=== PATIENT | male | born 1995 | race Caucasian/White ===

== ENCOUNTER 2020-09-05 09:15 | Outpatient (REF) | payer OTHER, SELFPAY | END 2020-09-05 09:16 | disposition home or self-care (01) | LOC: HO.LAB 09:15 | PROVIDERS: Visit Provider Internal Medicine | DX: Z20.828 Contact with and (suspected) exposure to other viral communicable diseases (principal) | CPT/HCPCS: C9803; U0003 ==

== ENCOUNTER 2020-11-18 09:27 | Outpatient (REF) | payer OTHER, SELFPAY | END 2020-11-18 09:28 | disposition home or self-care (01) | LOC: HO.LAB 09:27 | PROVIDERS: Visit Provider Internal Medicine | DX: Z20.822 Contact with and (suspected) exposure to COVID-19 (principal) | CPT/HCPCS: 36415; C9803; U0003; U0005 ==

== ENCOUNTER 2021-04-04 12:04 | Outpatient (REF) | payer OTHER, SELFPAY | END 2021-04-04 12:05 | disposition home or self-care (01) | LOC: HO.LAB 12:04 | PROVIDERS: Visit Provider Internal Medicine | DX: Z20.822 Contact with and (suspected) exposure to COVID-19 (principal) | CPT/HCPCS: C9803; U0003; U0005 ==

== ENCOUNTER 2021-06-13 08:47 | Outpatient (REF) | payer OTHER, SELFPAY ==
[2021-06-13 09:46] LABS: COVID-19 Test Negative (Negative)
== END 2021-06-13 08:48 | disposition home or self-care (01) ==
LOC: HO.LAB 08:47
PROVIDERS: Visit Provider Internal Medicine
DX: Z20.822 Contact with and (suspected) exposure to COVID-19 (principal)
CPT/HCPCS: 36415; 87635; C9803

== ENCOUNTER 2023-08-09 10:19 | Emergency (ER) | payer OTHER, SELFPAY ==
[2023-08-09 10:21] VITALS: BP 110/64; PULSE 100; RESP 18; TEMP 36.2; O2SAT 99; BMI 29.2
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
[2023-08-09] MEDS: Ketorolac Tromethamine 15 MG/ML VIAL IM (10:59)
[2023-08-09] MEDS: Cyclobenzaprine HCl 5 MG TABLET PO (11:00)
== END 2023-08-09 11:10 | disposition home or self-care (01) ==
PROVIDERS: Emergency Provider Emergency Medicine
DX: M54.50 Low back pain, unspecified (principal)
CPT/HCPCS: 96372; 99283; 99284; J1885

== ENCOUNTER 2023-08-15 07:57 | Outpatient (AMB) | payer OTHER, SELFPAY ==
--- NOTE | 2023-08-15 08:06 | A.OFFPC_ITS ---
<Statement entered by RONALD Montalvo - 08/16/23 11:24> This appointment is for a new patient physical exam with abnormal findings. Vital Signs 08/15/23 08:09 Height 6 ft Weight 220 lb BMI 29.8 BP 104/74 Blood Pressure Location Rt brachial Position Sitting Pulse 60 Pulse Source Pulse Oximeter Pulse Oximetry (%) 99 Oxygen Delivery Method Room Air Intake Visit Reasons: New Patient requesting Annual PE Intake Note: Pt is here today as a New Patient requesting a PE Allergies No Known Allergies [No Known Allergies*] Allergy (Verified 09/12/23 10:56) Tobacco use date assessed: 08/15/23 Dental Screening Dental Screen Date: 08/15/23 Did you have a dental visit in the last 12 months?: No Was dental information given to patient?: No HPI HPI Comments History of Present Illness Details The patient is a 28-year-old male here to establish care and have a physical exam. At the appointment today the patient has a chief complaint of lower back pain. He has a history of lower back pain. He states that the pain has improved over the past week but that he is still having discomfort at work, still having some discomfort trying to sleep. He has been using the Flexeril 5mg with some relief. He denies any cracking or crepitus. Denies tingling or numbness. No N/V/D. [facility] Medical History Lower back pain Physical exam Social History (Updated 08/15/23 @ 08:53 by RONALD Montalvo) Housing: Apartment Patient Tobacco Use Status: Current someday Tobacco user e-Cigarette/Vaping Use: Never Used Substance Use Type: Marijuana service: No Current occupational status: employed Cognitive needs: No Hearing needs: No Vision needs: No Questionnaire PHQ-9 Over the last 2 weeks, how often have you been bothered by any of the following problems? 1. Little interest or pleasure in doing things: several days 2. Feeling down, depressed, or hopeless: several days 3. Trouble falling or staying asleep, or sleeping too much: several days 4. Feeling tired or having little energy: more than half the days 5. Poor appetite or overeating: several days 6. Feeling bad about yourself - or that you are a failure or have let yourself or your family down: not at all 7. Trouble concentrating on things, such as reading the newspaper or watching television: several days 8. Moving or speaking so slowly that other people could have noticed. Or the opposite - being so fidgety or restless that you have been moving around a lot more than usual: not at all 9. Thoughts that you would be better off or of hurting yourself in some way: not at all Total score: 7 Depression Screening Interpretation: Negative (watchful waiting/ ) Depression Screening Done: Yes 59415 - PHQ-9 Billing: Yes Source: Developed by Drs. Hugo Allen, Nia Can, Bony Ely and colleagues, with an educational fransisca from [employer]. Thrive Questionnaire Date Thrive assessed: 08/15/23 I am a: Patient What is your living situation today?: I have a steady place to live Within the past 12 months, did the food you bought not last and you didn't have the money to get more?: Never true Within the past 12 months, did you worry whether your food would run out before you got money to buy more?: Never true Do you have trouble paying for medicines?: No Do you have trouble getting transportation to medical appointments?: No Do you have trouble paying your heating and electricity bill?: No Do you have trouble taking care of your child, family member or friend?: No Do you have trouble with day-to-day activities such as bathing, preparing meals, shopping, managing finances, etc.?: No Are you currently unemployed and looking for a job?: No Are you interested in more education?: No AUDIT C Alcohol Use Questionnaire (AUDIT-C) 1. How often do you have a drink containing alcohol?: Monthly or less 2. How many drinks containing alcohol do you have on a typical day when you are drinking?: 1 or 2 3. How often do you have six or more drinks on one occasion?: Never Total Score: 1 Score Reviewed/Action Taken: Yes BRETT-7 AMB Questionnaire BRETT-7 Date BRETT - 7 assessed: 08/15/23 Feeling nervous, anxious, or on edge: 1 = Several days Not being able to stop or control worryin = Several days Worrying too much about different things: 1 = Several days Trouble relaxin = Several days Being so restless that it is hard to sit still: 1 = Several days Becoming easily annoyed or irritable: 2 = More than half the days Feeling afraid as if something awful might happen: 0 = Not at all Total BRETT-7 score (0-4 normal; 5-9 mild; 10-14 moderate; 15-21 severe): 7 Source: Developed by Drs. Hugo Allen, Nia Can, Bony Ely and colleagues, with an educational fransisca from [employer]. BRETT-7 Assessment Billing BRETT-7 Assessment Tool: BRETT-7 Assessment 90390 Review of Systems Const All systems reviewed & are unremarkable except as noted in HPI and below Denies chills, Denies fatigue, Denies fever(s) and Denies headache(s) Eyes Denies requires corrective lenses ENT Denies vertigo, Denies dizziness and Denies headache(s) Card Denies chest pain and Denies dyspnea Resp Denies cough, Denies dyspnea and Denies wheezing GI Denies abdominal pain, Denies heartburn, Denies diarrhea, Denies nausea and Denies vomiting Musc Reports as per HPI, Denies numbness, Reports stiffness and Denies tingling Skin/Breast Denies dry skin Neuro Denies vertigo, Denies dizziness, Denies headache(s), Denies numbness and Denies tingling Psych Denies anxiety and Denies depression Endo Denies fatigue Aller/Immun Denies wheezing Physical exam (Primary Care) Vital Signs: Last Vital Signs Pulse 60 08/15/23 08:09 BP 104/74 08/15/23 08:09 Pulse Ox 99 08/15/23 08:09 Oxygen Delivery Method Room Air 08/15/23 08:09 Care Plan Goal for BP management: Patient's vital signs have been reviewed and are stable. BMI result Body Mass Index 29.8 Tobacco/Smoking Status: Tobacco use Status Tobacco use date assessed 08/15/23 08/15/23 08:11 Patient Tobacco Use Status Current someday Tobacco 08/15/23 08:11 e-Cigarette/Vaping Use Never Used 08/15/23 08:11 Are you ready to quit: No Tobacco cessation counseling provided: No PHQ-9: PHQ-9 Score PHQ-9: Total score 7 09/16/23 13:03 Depression Screening Interpretation: Negative (watchful waiting/ ) Thrive Assessment: Date of Thrive Assessment Date Thrive assessed 08/15/23 08/15/23 08:15 Const General: cooperative, healthy appearing and no acute distress Orientation/consciousness: patient oriented x3 Limitations: no limitations HENMT Head: Yes normal to inspection and Yes normocephalic Ears: TM's normal bilaterally General nose exam: Normal external nose present, Normal septum present and No n lidia discharge present Face and sinus: Yes normal facial exam and Yes sinuses nontender Mouth: Normal oral and palatal mucosa present Teeth and gingiva: dentition normal Throat: Yes uvula midline Eyes General: appearance normal, both eyes and all related structures Pupils: Equal, round and reactive pupils present Direct Ophthalmoscopy: normal light reflex and no photophobia Neck Neck: Yes normal visual inspection, Yes full ROM and Yes no lymphadenopathy Thyroid: Thyroid normal Chest Chest palpation & inspection: normal inspection of the chest Resp Effort & Inspection: normal respiratory effort Auscultation: clear to auscultation bilaterally Cardio Palpation: normal PMI Rate: regular rate Rhythm: regular rhythm Heart sounds: S1 normal heart sound present and S2 normal heart sound present GI Inspection: Yes normal to inspection Palpation (GI): nontender Auscultation: normal bowel sounds General: Yes no CVA tenderness Back/Spine/Pelvis Back: no CVA tenderness Cervical Spine: normal cervical lordosis Thoracic/Lumbar Spine: thoracic and lumbar spine normal to inspection, paraspinal muscle tenderness bilaterally and other (Straight leg test positive, bilaterally) Skin General skin exam: no rashes or lesions noted Neuro General: patient oriented x3 Cranial nerves: Yes Equal, round and reactive pupils present Motor exam (neuro): 5/5 motor strength present throughout Psych Affect: normal affect Attitude: cooperative Thought process: Normal thought process present Thought content: Normal thought content present Insight: Good insight present (Psych) Judgement: Good judgement present (Psych) Results Reviewed Results Reviewed: Patient is getting lab draw will call with results. Assessment and Plan Assessment & Plan (1) Encounter for routine adult physical exam with abnormal findings: Comment: Patient will have labs drawn today. Will get back to him with results. He is agreeable to the plan. Code(s): Z00.01 - Encounter for general adult medical examination with abnormal findings (2) Lower back pain: Comment: See other note for specific visit on lower back pain. Code(s): M54.50 - Low back pain, unspecified Qualifiers: Back pain laterality: bilateral Chronicity: acute Sciatica presence: without sciatica Qualified Code(s): M54.50 - Low back pain, unspecified Orders: Orders Comprehensive [place]. Panel Fast 08/15/23 Z00.00 - Encounter for general adult medical examination without abnormal findings XR lumbar spine 4V min 08/15/23 M54.50 - Low back pain, unspecified Complete Blood Count Auto Diff 08/15/23 Z00.00 - Encounter for general adult medical examination without abnormal findings Lipid Panel 08/15/23 Z00.00 - Encounter for general adult medical examination without abnormal findings TSH reflex Free T4 08/15/23 Z00.00 - Encounter for general adult medical examination without abnormal findings UA CC w/rflx Micro + Cult 08/15/23 Z00.00 - Encounter for general adult medical examination without abnormal findings PT Evaluation and Treatment 08/15/23 M54.50 - Low back pain, unspecified Medications: New cyclobenzaprine 10 mg PO BEDTIME PRN 10 tabs 0RF muscle spasm meloxicam 15 mg PO DAILY 10 tabs 0RF Discontinued cyclobenzaprine Discontinued Reason: Patient no longer taking 5 mg PO TID 7 days PRN 21 tabs 0RF muscle spasm Coding Level of Care Code New Pt Prev Care [id number]([id number] Diagnoses Encounter for routine adult physical exam with abnormal findings Z00.01 Acute bilateral low back pain without sciatica M54.50 Back pain laterality: bilateral Chronicity: acute Sciatica presence: without sciatica Additional Codes BRETT-7 Assessment Billing - BRETT-7 Assessment Tool: BRETT-7 Assessment 60643 ([id number]) Time Spent (min) 30
[2023-08-15 08:09] VITALS: BP 104/74; PULSE 60; O2SAT 99; BMI 29.8
== END 2023-08-15 10:36 | disposition home or self-care (01) ==
PROVIDERS: Visit Provider Nurse Practitioner Primary Care
DX: Z00.01 Encounter for general adult medical examination with abnormal findings (principal); M54.50 Low back pain, unspecified
CPT/HCPCS: 99213; 99385; 99499

== ENCOUNTER 2023-08-15 08:00 | Outpatient (AMB) | payer OTHER, SELFPAY ==
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
== END 2023-08-15 16:25 | disposition home or self-care (01) ==
PROVIDERS: PCP Nurse Practitioner Primary Care; Visit Provider Nurse Practitioner Primary Care
DX: M54.50 Low back pain, unspecified (principal)
CPT/HCPCS: 99499

== ENCOUNTER 2023-08-15 08:37 | Outpatient (REF) | payer OTHER, SELFPAY ==
--- NOTE | ~2023-08-15 | XR_ITS ---
EXAMINATION: XR LUMBOSACRAL SPINE WITH OBLIQUES CLINICAL INFORMATION: Lower back pain. COMPARISON: Lumbar spine radiographs dated 07/09/2019. TECHNIQUE: AP, both oblique, and lateral views of the lumbar spine. Lateral view of the lumbosacral junction. FINDINGS: Vertebral body heights and alignment are normal. At L3-L4, there is a 4 mm anterolisthesis. At L4-L5, there is a 3 mm retrolisthesis. The remaining disc spaces are well-maintained. No acute fracture or spondylolisthesis is seen. The posterior elements are intact. No spondylolysis defect seen on the oblique views. There are pelvic phleboliths. XR/XR lumbar spine 4V min IMPRESSION: There is mild degenerative disc disease at L3-L4 and L4-L5.
[2023-08-15 11:07] LABS: MANUAL DIFF FLAG NO
[2023-08-15 11:09] LABS: Basophils Absolute Auto 0.1 X10*3/uL (0.0-0.2); Basophils Percent Auto 0.9 % (0-2); Eosinophils Absolute Auto 0.3 X10*3/uL (0.0-0.4); Eosinophils Percent Auto 5.4 % (0-4); Hematocrit 42.6 % (42.0-52.0); Hemoglobin 13.9 g/dl (14.0-18.0); Imm Gran Abs Auto 0.02 X10*3/uL (0.00-0.03); Imm Gran Pct Auto 0.4 % (0.0-0.4); Lymphocytes Absolute Auto 1.4 X10*3/uL (1.2-4.9); Lymphocytes Percent Auto 25.3 % (20-40); Mean Corpuscular HGB Conc 32.6 g/dl (31.0-36.0); Mean Corpuscular Hemoglobin 26.7 pg (27.0-33.0); Mean Corpuscular Volume 81.9 fL (80.0-98.0); Monocytes Absolute Auto 0.5 X10*3/uL (0.1-1.2); Monocytes Percent Auto 8.8 % (2-11); Neutrophils Absolute Auto 3.2 x10*3/uL (2.0-8.3); Neutrophils Percent Auto 59.2 % (45-73); Platelet Count 252 X10*3/uL (160-400); White Blood Count 5.4 X10*3/uL (4.8-10.8)
[2023-08-15 11:21] LABS: Appearance Urine Clear; Color Urine Yellow; Glucose Urine UA Negative (Negative); Leukocyte Esterase Urine Negative (Negative); Nitrite Urine Negative (Negative); Urine Blood Negative (Negative); Urine Ketones Negative (Negative); Urine Protein Negative (Neg-Trace)
[2023-08-15 11:51] LABS: Alanine Aminotransferase 19 U/L (0-40); Albumin Level 4.4 g/dL (3.5-5.0); Alkaline Phosphatase 78 U/L (39-117); Anion Gap 11 (12-20); Aspartate Amino Transferase 20 U/L (5-37); Blood Urea Nitrogen 11 mg/dL (9-16); Calcium 9.3 mg/dL (8.4-10.2); Carbon Dioxide 29 mmol/L (22-29); Chloride 105 mmol/L (96-108); Cholesterol 130 mg/dL (<200); Estimated Glomerular Filt Rate > 60; Glucose Fasting 104 mg/dL (60-99); HDL Cholesterol 39 mg/dL (>40); LDL Cholesterol Calculated 78 mg/dL (<100); Potassium 4.6 mmol/L (3.3-5.1); Sodium 140 mmol/L (135-145); Total Protein 7.3 g/dL (6.5-8.0); Triglycerides 67 mg/dL (<150)
[2023-08-15 11:55] LABS: TSH reflex Free T4 1.16 uIU/mL (0.32-4.0)
== END 2023-08-15 08:38 | disposition home or self-care (01) ==
LOC: HO.HMGCX 08:37
PROVIDERS: PCP Nurse Practitioner Primary Care; Visit Provider Nurse Practitioner Primary Care
DX: Z00.00 Encounter for general adult medical examination without abnormal findings (principal); M54.50 Low back pain, unspecified
CPT/HCPCS: 36415; 72110; 80053; 80061; 81003; 84443; 85025

== ENCOUNTER 2023-11-21 16:00 | Outpatient (RCR) | payer OTHER, SELFPAY ==
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
== END 2024-07-02 07:28 | disposition home or self-care (01) ==
LOC: HO.PTCHIC 16:00
PROVIDERS: PCP Nurse Practitioner Primary Care; Visit Provider Nurse Practitioner Primary Care
DX: M54.50 Low back pain, unspecified (principal)
CPT/HCPCS: 97014; 97110; 97140; 97161